=== PATIENT | female | born 1965 | race Caucasian/White ===

== ENCOUNTER 2019-01-19 04:31 | Inpatient (IN) ==
[2019-01-19] MEDS ORDERED: ASPIRIN PR ONE (04:42)
[2019-01-19] MEDS ORDERED: ASPIRIN PO ONE (04:42)
--- NOTE | 2019-01-19 05:06 | PROVIDER DOCUMENTATION ---
HPI-Chest Pain - General Chief Complaint: Chest Pain Stated Complaint: CP Time Seen by Provider: 01/19/19 05:05 Allergies/Adverse Reactions: Patient Allergies Allergy/AdvReac Type Severity Reaction Status Date / Time latex Allergy RASH Verified 01/19/19 04:58 Penicillins Allergy RASH Verified 01/19/19 04:58 Home Medications: Home Medication List Medication Instructions Recorded Confirmed Last Taken Type Omeprazole 40 mg PO DAILY 12/26/13 01/19/19 09/20/17 09:00 History Oxcarbazepine 150 mg PO BID 12/26/13 01/19/19 09/21/17 09:00 History Oxcarbazepine 300 mg PO BID 12/26/13 01/19/19 09/21/17 09:00 History ATORVAstatin [Lipitor] 10 mg PO QPM 09/19/17 01/19/19 09/20/17 09:00 History Ergocalciferol (Vitamin D2) 50,000 unit PO DIRECTED 09/19/17 01/19/19 09/20/17 09:00 History [Vitamin D2] Furosemide 20 mg PO DAILY PRN 09/19/17 01/19/19 09/20/17 09:00 History Metformin HCl 1,000 mg PO BID 09/19/17 01/19/19 09/20/17 21:00 History Metoprolol Tartrate 50 mg PO DAILY 09/19/17 01/19/19 09/21/17 11:35 History Potassium Chloride 10 meq PO DAILY PRN 09/19/17 01/19/19 09/20/17 09:00 History Albuterol Sulfate Inhaler 2 puff INH Q4-6H PRN PRN 01/19/19 01/19/19 Unknown History [Ventolin Hfa] Aspirin [Aspir-Low] 1 tab PO DAILY 01/19/19 01/19/19 Unknown History Ciclopirox [Penlac] 1 applicatn TOP DAILY 01/19/19 01/19/19 Unknown History Gabapentin 1 cap PO QHS 01/19/19 01/19/19 Unknown History Montelukast [Singulair] 1 tab PO QPM 01/19/19 01/19/19 Unknown History Sumatriptan [Imitrex] 1 spray INTRANASAL PRN PRN 01/19/19 01/19/19 Unknown History - History of Present Illness-CP Nature of Presenting Problem: Presents to the with complaints chest pain. She states that the chest pain started on and has been coming and going since. Nothing makes it better and nothing makes it worse. she describes the pain as dull starting in left breast and going into her left shoulder and then into her left abdomen. She endorses nausea with it. Denies any vomiting, diaphoresis, SOB or palpitations. She states she has a history of one stent that was placed about 1 year ago. 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 Review of Systems - Adult - REVIEW OF SYSTEMS - ADULT Constitutional: reports: no symptoms reported Eyes: reports: no symptoms reported Ears, Nose, Mouth & Throat: reports: no symptoms reported Cardiovascular: reports: chest pain. denies: palpitations Respiratory: reports: no symptoms reported. denies: cough, dyspnea on exertion, shortness of breath Gastrointestinal: reports: see HPI, abdominal pain, nausea. denies: vomiting Genitourinary: reports: no symptoms reported Musculoskeletal: reports: no symptoms reported Integumentary: reports: no symptoms reported Neurological: reports: no symptoms reported Psychiatric: reports: no symptoms reported Endocrine: reports: no symptoms reported Hematologic/Lymphatic: reports: no symptoms reported Allergic/Immunologic: reports: no symptoms reported All Other Systems: Reviewed and Negative Past History - Adult - PAST MEDICAL HISTORY-ADULT Review of Records: reports: Old Records Reviewed Major Childhood Illnesses: reports: denies history Cardiovascular: reports: HTN Respiratory: reports: denies history Gastrointestinal: reports: cholelithiasis, GERD, other (H. Pylori) Obstetrical/Gynecological: reports: denies history Genitourinary: reports: denies history Musculoskeletal: reports: denies history Neurological: reports: Seizures/Epilepsy Psychiatric: reports: denies history Endocrine/Immune: reports: Diabetes Other Conditions: reports: denies history - PRIOR SURGERIES/PROCEDURES Surgical/Procedure History: reports: other (scheduled for cholecystectomy 12/30/13 cancelled due to CP) - PRIOR HOSPITALIZATIONS Prior Hospitalizations: reports: none - IMMUNIZATION STATUS Childhood Immunizations: UTD Flu Vaccine: See Nurse Assessment - FAMILY HISTORY Family History: reviewed, not pertinent Physical Exam-General - PHYSICAL EXAM-ADULT Initial Vital Signs Reviewed: Yes - CONSTITUTIONAL General Appearance: appears well, alert, no apparent distress, anxious - EYES Eyes: PERRL/EOMI - HEAD, EARS, NOSE, MOUTH & THROAT HENMT: normocephalic/atraumatic, moist mucous membranes - NECK Neck: non-tender, full range of motion, supple, normal inspection - RESPIRATORY Respiratory: chest non-tender, lungs clear, normal breath sounds, no respiratory distress, no accessory muscle use - CARDIOVASCULAR Cardiovascular: normal peripheral pulses, regular rate, rhythm, no murmur - GASTROINTESTINAL (ABDOMEN) Abdominal Exam: normal bowel sounds, non tender, soft, other (obese) - MUSCULOSKELETAL Back Exam: normal inspection Extremity: normal range of motion, non-tender, normal gait, no pedal edema - SKIN Integumentary: normal color, warm/dry - NEUROLOGIC Neurologic: grossly normal - PSYCHIATRIC Psych/Mental Status: normal mood/affect, oriented x 3, anxious - HEART Score HEART Score: History: Moderately Suspicious HEART Score: ECG: Normal HEART Score: Age: 45-65 Years HEART Score: Risk Factors for Atherosclerotic Disease: > or = 3 Risk Factors or History of Atherosclerotic Disease HEART Score: Troponin: < or = Normal Limit Total HEART Score:: 4 Progress - PLAN OF CARE/RESULTS Progress/Plan/Lab Results: Vital Signs - 8 hr 01/19/19 04:36 01/19/19 07:05 Temperature 98.2 F Pulse Rate 78 71 Respiratory Rate 20 17 Blood Pressure 173/116 181/101 O2 Sat by Pulse Oximetry 96 94 L Laboratory Results - last 24 hr 01/19/19 01/19/19 01/19/19 04:43 04:43 04:43 WBC 9.32 RBC 4.26 Hgb 12.4 Hct 37.0 MCV 86.9 MCH 29.1 MCHC 33.5 RDW Std Deviation 14.1 Plt Count 290 MPV 10.7 H Immature Gran % (Auto) 0.2 Neut % (Auto) 38.8 L Lymph % (Auto) 49.6 [place] % (Auto) 6.8 Eos % (Auto) 4.1 Baso % (Auto) 0.5 Immature Gran # (Auto) 0.02 Neut # (Auto) 3.62 Lymph # (Auto) 4.62 H [place] # (Auto) 0.63 H Eos # (Auto) 0.38 Baso # (Auto) 0.05 PT INR PTT (Actin FS) Sodium 141 Potassium 4.2 Chloride 101 Carbon Dioxide 25 Anion Gap 16 BUN 9 Creatinine 0.4 L Estimated GFR/1.73 m2 > 60 BUN/Creatinine Ratio 23 Glucose 145 H Calculated Osmolality 283 Calcium 9.5 Total Bilirubin 0.20 AST 59 H ALT 45 H Alkaline Phosphatase 72 Creatine Kinase 151 Troponin T Vhs-H-[id number] Pept 41 Total Protein 7.2 Albumin 4.7 Globulin 3.0 Albumin/Globulin Ratio 2.0 01/19/19 01/19/19 04:43 04:43 WBC RBC Hgb Hct MCV MCH MCHC RDW Std Deviation Plt Count MPV Immature Gran % (Auto) Neut % (Auto) Lymph % (Auto) [place] % (Auto) Eos % (Auto) Baso % (Auto) Immature Gran # (Auto) Neut # (Auto) Lymph # (Auto) [place] # (Auto) Eos # (Auto) Baso # (Auto) PT 12.2 INR 0.86 PTT (Actin FS) 24.8 Sodium Potassium Chloride Carbon Dioxide Anion Gap BUN Creatinine Estimated GFR/1.73 m2 BUN/Creatinine Ratio Glucose Calculated Osmolality Calcium Total Bilirubin AST ALT Alkaline Phosphatase Creatine Kinase Troponin T < 0.010 [id number] Pept Total Protein Albumin Globulin Albumin/Globulin Ratio Orders Category Date Time Status Cardiac Monitoring DIRECTED Care 01/19/19 04:42 Active Oxygen Therapy- ED Nursing DIRECTED Care 01/19/19 04:42 Active Saline Loc NOW Care 01/19/19 04:42 Active CHEST-2 VIEWS [RAD] Stat Exams 01/19/19 04:42 Completed CBC WITH ELECTRONIC DIFF [HEME] Stat Lab 01/19/19 04:43 Completed CK PROFILE [SP CHEM] Stat Lab 01/19/19 04:43 Completed CK PROFILE [SP CHEM] Stat Lab 01/19/19 06:59 Ordered COMPREHENSIVE METABOLIC PANEL [CHEM] Stat Lab 01/19/19 04:43 Completed PRO B-NATRIURETIC PEPTIDE Stat Lab 01/19/19 04:43 Completed PROTIME WITH INR [COAG] Stat Lab 01/19/19 04:43 Completed PTT [COAG] Stat Lab 01/19/19 04:43 Completed TROPONIN T Stat Lab 01/19/19 04:43 Completed TROPONIN T Stat Lab 01/19/19 06:59 Ordered Aspirin Med 01/19/19 04:42 Discontinued 300 mg RI NOW ONE Aspirin Med 01/19/19 04:42 Discontinued 325 mg PO NOW ONE Famotidine [Pepcid] Med 01/19/19 05:30 Discontinued 40 mg PO NOW ONE Ketorolac [Toradol] Med 01/19/19 05:30 Discontinued 30 mg IV NOW ONE Nitroglycerin Med 01/19/19 06:37 Discontinued 0.5 inch TOP NOW ONE Ondansetron [Zofran] Med 01/19/19 05:30 Discontinued 4 mg IV NOW ONE CP/SOB/Palp >45 yrs of Age Stat Oth 01/19/19 04:42 Ordered EKG [EKG] Stat Ther 01/19/19 04:34 Draft EKG [EKG] Stat Ther 01/19/19 06:59 Ordered Patient with negative troponin and normal EKG. Given hx of stent and previous PA heart score is 4. Spoke to patient about staying for ACS. She agreed. Spoke to Dr Morocho who accepted patient for admission. Stable for floor with telemetry Result Diagrams: 01/19/19 04:43 01/19/19 04:43 - EKG 1 Time of EKG reading by physician:: 04:40 EKG Read and Signed by:: Abbi Cornell EKG Interpretation (*Must complete 3 of following elements*): Normal Rate: 75 Rhythm: NSR [place]: normal QRS: normal RI Interval: normal ST Wave: normal - CONSULTS/PCP/HOSPITALIST Notification #1 *Consult/PCP/Hospitalist*: Rashawn Time Discussed: 07:14 Consult Disposition: Admit Departure - Departure Date of Disposition Decision: 01/19/19 Time of Disposition Decision: 07:14 DIAGNOSIS: Chest pain Disposition: ADMITTED INPATIENT 09 Certified Medical Emergency: Emergent Condition: Stable Referrals and Follow-Ups: None,PCP [Primary Care Provider] - - Critical Care Note This patient required my direct & personal management of CC.: No Attestation - Physician/ STACEY Attestation Patient care was provided by Advanced Practice Provider:: No The physician spent face to face time with patient:: Yes Advanced Practice Provider documentation review:: Supervising physician onsite and consulted in the evaluation and care of this patient. The physician did have a face to face encounter with the patient.
--- NOTE | 2019-01-19 05:11 | EKG Report ---
Test Performed on : 01/19/2019 04:38:29 AM Test Reason : chest pain Blood Pressure : / mmHG Vent. Rate : 075 BPM Atrial Rate : 075 BPM P-R Int : 130 ms QRS Dur : 076 ms QT Int : 388 ms P-R-T Axes : 049 032 041 degrees QTc Int : 433 ms Normal sinus rhythm. Normal ECG When compared with ECG of 30-DEC-2013 20:07, No significant change was found Unconfirmed Result
[2019-01-19] MEDS ORDERED: ZOFRAN IV ONE (05:30)
[2019-01-19] MEDS ORDERED: TORADOL IV ONE (05:30)
[2019-01-19] MEDS ORDERED: PEPCID PO ONE (05:30)
[2019-01-19 05:43] LABS: BASO# 0.05 X1000 (0.0-0.2); BASO% 0.5 % (0.0-0.8); EOS# 0.38 X1000 (0.0-0.7); EOS% 4.1 % (0.0-10.0); HEMOGLOBIN 12.4 g/dL (12.0-16.0); IMM GRAN# 0.02 X1000 (0.0-0.04); IMM GRAN% 0.2 % (0.0-0.5); LYMPH# 4.62 X1000 (1.2-3.4); LYMPH% 49.6 % (20.5-51.1); MCH 29.1 PG (27-31); MCHC 33.5 g/dL (33-37); MCV 86.9 FL (81-99); MONO# 0.63 X1000 (0.11-0.59); MONO% 6.8 % (1.7-9.3); MPV 10.7 FL (7.4-10.4); NEUT# 3.62 X1000 (1.4-6.5); NEUT% 38.8 % (42.2-75.2); PLT 290 X1000 (130-400); RBC 4.26 XMIL (4.2-5.4); RDW 14.1 % (11.5-14.5); WBC 9.32 X1000 (4.8-10.8)
[2019-01-19 05:46] LABS: INR 0.86; PROTIME 12.2 Seconds (11.0-16.0)
[2019-01-19 05:47] LABS: PTT 24.8 Seconds (22.3-41.8)
[2019-01-19 06:10] LABS: CHLORIDE 101 mmol/L (98-107); POTASSIUM 4.2 mmol/L (3.5-5.1); SODIUM 141 mmol/L (136-145)
[2019-01-19 06:26] LABS: AGAP 16; ALKALINE PHOSPHATASE 72 U/L (32-104); BUN 9 mg/dL (8-22); CALCIUM 9.5 mg/dL (8.8-10.2); CK PROFILE 151 U/L (24-173); COSMO 283; CREATININE 0.4 mg/dL (0.5-0.9); ESTIMATED GFR > 60; GLUCOSE 145 mg/dL (70-104); GOT 59 U/L (10-30); GPT 45 U/L (10-36); TCO2 25 mmol/L (25-35); TOTAL PROTEIN 7.2 g/dL (6.3-8.3)
[2019-01-19] MEDS ORDERED: NITROGLYCERIN TOP ONE (06:37)
[2019-01-19 06:40] LABS: ALBUMIN 4.7 g/dL (3.5-5.0)
--- NOTE | 2019-01-19 07:12 | Diag Imaging Result Doc PS360 ---
EXAM: CHEST-2 VIEWS 01/19/2019 HISTORY: chest pain TECHNIQUE: PA and lateral chest COMMENT: The left hemidiaphragm is slightly elevated. There is ill-defined opacity over the left base which was not the case on 12/30/2013. There is some obscuration of the left hemidiaphragm on the lateral view. IMPRESSION: Minimal left lower lobe pneumonia. Electronically signed by Charles Mcgarry 01/19/2019 7:10 AM
[2019-01-19] MEDS ORDERED: TYLENOL PO PRN (08:11)
[2019-01-19] MEDS ORDERED: ZOFRAN IV PRN (08:11)
[2019-01-19] MEDS ORDERED: SALINE LOCK IV FLUID XX ONE (08:11)
[2019-01-19] MEDS ORDERED: VENTOLIN HFA INH PRN (08:16)
[2019-01-19] MEDS ORDERED: KLOR-CON PO PRN (08:16)
[2019-01-19] MEDS ORDERED: LASIX PO PRN (08:16)
--- NOTE | 2019-01-19 08:37 | EKG Report ---
Test Performed on : 01/19/2019 07:11:30 AM Test Reason : CP Blood Pressure : / mmHG Vent. Rate : 074 BPM Atrial Rate : 074 BPM P-R Int : 138 ms QRS Dur : 074 ms QT Int : 418 ms P-R-T Axes : 048 040 042 degrees QTc Int : 463 ms Normal sinus rhythm. Normal ECG When compared with ECG of 19-JAN-2019 04:38, (Unconfirmed) No significant change was found Unconfirmed Result
[2019-01-19] MEDS ORDERED: CICLOPIROX TOP SCH (09:00)
[2019-01-19] MEDS: MORPHINE IV PRN ×2 (09:06→13:59)
[2019-01-19] MEDS: ASPIRIN PO SCH (09:06)
[2019-01-19] MEDS: GLUCOPHAGE PO SCH ×2 (09:06→16:44)
[2019-01-19] MEDS: LOPRESSOR PO SCH (09:07)
[2019-01-19] MEDS: TRILEPTAL PO SCH ×4 (09:35→21:18)
[2019-01-19] MEDS ORDERED: PNEUMOVAX 23 IM ONE (09:45)
--- NOTE | 2019-01-19 12:10 | EKG Report ---
Test Performed on : 01/19/2019 11:40:26 AM Test Reason : CP Blood Pressure : / mmHG Vent. Rate : 070 BPM Atrial Rate : 070 BPM P-R Int : 136 ms QRS Dur : 082 ms QT Int : 424 ms P-R-T Axes : 067 063 066 degrees QTc Int : 457 ms Normal sinus rhythm. Normal ECG When compared with ECG of 19-JAN-2019 07:11, (Unconfirmed) No significant change was found Confirmed by Jorge A Llanes MD ([id number]) on 01/20/2019 11:26:17 AM
[2019-01-19] MEDS: ROCEPHIN 1 GM in NS 50 ML IV SCH (13:06)
[2019-01-19] MEDS: HUMULIN R (PARKWAY) SUBQ SCH ×3 (13:26→22:18)
--- NOTE | 2019-01-19 13:52 | HISTORY AND PHYSICAL ---
ADDENDUM: Patient seen and examined by myself. Full note dictated and discussed with nurse practitioner. Patient notes that she had a heart catheterization January 26, 2017, and had stents. Does not have any workup since then. Presented with left shoulder, left chest wall pain. We will admit her to the hospital, rule out TX. We will consult Cardiology and we will follow. cc: Romero Morocho MD
--- NOTE | 2019-01-19 15:24 | HISTORY AND PHYSICAL ---
PRIMARY CARE PHYSICIAN: Dr. Brown. CHIEF COMPLAINT: Chest pain. HISTORY OF PRESENT ILLNESS: Mr. Colón is a 53-year-old female who presented to the ER today with a past medical history of known coronary artery disease with a stent placement in 2018, diabetes, hyperlipidemia, hypertension. The patient states that she started having chest pain on . The pain is sharp. It radiates down her left arm into the shoulder area. The patient states she was also having some stomach pain at the time. The patient states the pain comes and goes, but nothing ever makes it any better. The patient states she has had some nausea with this pain. She has not had any vomiting. She denies any headache, fever, palpitations, dizziness, shortness of breath, syncope, or any blurred vision. Patient states that this pain has continually persisted on and off since , so she decided to come to the ER at this time. The patient denies any problem with her bowels or bladder. States she does not have any hematuria, melena, urgency, or frequency or any constipation. LABORATORY FINDINGS: In the ER show a creatine kinase of 133, a troponin of less than 0.01. AST and ALT elevation, AST is 59, ALT is 45. Glucose is elevated at 145. Creatinine is 0.4. DIAGNOSTIC DATA: Shows some minimal left lower lobe pneumonia. EKG shows normal sinus rhythm with a rate of 74. PAST MEDICAL HISTORY: Coronary artery disease, diabetes, hyperlipidemia, hypertension. PAST SURGICAL HISTORY: A stent placement to her heart in 01/26/2018 in [place]. Left ankle surgery, tonsillectomy, partial hysterectomy and tubal ligation, bladder tack. FAMILY HISTORY: Mother and father both are significant for heart problems. SOCIAL HISTORY: The patient states she lives in [place]. She denies any smoking, alcohol or any drug abuse. ALLERGIES: Penicillin and latex. MEDICATIONS: 1. Aspirin 81 mg daily. 2. Omeprazole 40 mg daily. 3. Imitrex 5 mg nasal spray p.r.n. 4. Albuterol sulfate inhaler 2 puffs every 4 to 6 hours p.r.n. 5. Lipitor 10 mg p.o. q.p.m. 6. Vitamin D2, 41466 units p.o. weekly. 7. Furosemide 20 mg p.o. daily. 8. Gabapentin 300 mg p.o. at bedtime. 9. Metformin 1000 mg p.o. b.i.d. 10. Metoprolol 50 mg p.o. daily. 11. Singulair 10 mg p.o. q.p.m. 12. Oxcarbazepine 450 mg p.o. b.i.d. 13. Potassium chloride 10 mEq p.o. daily. LABORATORY DATA AND DIAGNOSTICS: White blood cell count 9.32, hemoglobin 12.4, hematocrit 37, platelet count 290,000. PT is 12.2, INR is 0.86, PTT is 24.8, sodium is 141, potassium is 4.2, carbon dioxide 25, anion gap is 16, BUN is 9, creatinine is 0.4, estimated GFR greater than 60, glucose is 145, calcium is 9.5. Total bilirubin is 0.20, AST is 59, ALT is 45, alkaline phosphatase 72, creatine kinase is 133, troponin is less than 0.01. ProBNP is 41. Chest x-ray shows minimal left lower lobe. The EKG shows normal sinus rhythm, rate of 74. REVIEW OF SYSTEMS: A 10 point review of systems has been obtained and all negative except what is stated above in the HPI. PHYSICAL EXAMINATION: VITAL SIGNS: Temperature 97.7 degrees, pulse rate 66, respiratory rate 20, blood pressure 153/78, O2 saturation 100% on 2 L nasal cannula. Weight 191 pounds and 4 ounces. Height 5 feet 3 inches. GENERAL: This is a 53-year-old female. She is lying on the ER stretcher. She is in no acute distress at present time. She is well nourished and well developed. HEENT: Atraumatic, normocephalic. Pupils equal, round, react to light. Extraocular movements intact. Sclerae is anicteric. Mucous membranes are moist. NECK: Supple. No lymphadenopathy. Trachea is midline. No JVD. No thyromegaly. No bruits. CARDIOVASCULAR: Regular rate and rhythm. No murmurs, gallops, or rubs appreciated. RESPIRATORY: Lung sounds are clear with equal chest excursion. Respirations are nonlabored with no accessory muscle usage. ABDOMEN: Soft, nontender, nondistended. Bowel sounds present x4. NEUROLOGIC: Cranial nerves 2-12 are intact. Patient is awake, alert, oriented, able to follow all commands appropriately. MUSCULOSKELETAL: Full distal strength noted. No abnormalities, no deformities. EXTREMITIES: No clubbing, no cyanosis, no edema. DP and PT pulses are present and palpable. SKIN: Warm, dry, and intact. No rashes. No bruises. No diaphoresis noted. ASSESSMENT AND PLAN: 1. Chest pain, rule out acute coronary syndrome . We will admit this patient to the medical floor. We are going to trend her serial CK, troponins and EKGs. We will order an echocardiogram for the patient. I have started her on aspirin 325 p.o. daily and continued all her home medications. 2. Pneumonia. I have started this patient on IV antibiotics for her pneumonia. I have also reordered her home medication and her inhaler. 3. Hypertension. I have reordered her home blood pressure medications. 4. Diabetes mellitus. I have reordered her home blood sugar medications. We are also going to check her fingersticks before meals and at bedtime and will provide her with sliding scale insulin as needed. 5. Known coronary artery disease. The patient states that she had a stent placed in January 2018 at [facility]. Patient has since seen Dr. Cerna. She is on home aspirin, but Dr. Cerna took her off her Plavix. We will start her on aspirin 325 mg p.o. daily. We will rule her out for acute coronary syndrome from her chest pain, we are going to do echo echocardiogram. 6. Hyperlipidemia. I have restarted her home lipid medication. 7. Gastrointestinal prophylaxis. I have placed her on omeprazole 20 mg p.o. daily. 8. Deep venous thrombosis prophylaxis. I placed her in SCDs. We have admitted this patient to the medical floor. We will place her on groundwater monitoring technician. We are going to trend her CK and troponins and her EKGs. She does show to have a pneumonia. We have started her on IV antibiotics. We reordered all her home medications. We started her on a healthy heart diet. We are also going to be checking her blood sugars before meals and at bedtime. I have reordered labs for in the morning and chest x-ray. All other further recommendations and treatment pending hospital course and lab data. Dictated by GIOVANNA Monet for Romero Morocho MD cc: MD Salome Philip Read [facility]
--- NOTE | 2019-01-19 15:50 | ECHO REPORT ---
ORDER DATE: 01/19/2019 INTERPRETING PHYSICIAN: Dr. Cabrera REQUESTING PHYSICIAN: CLINICAL INDICATIONS: This is a 53-year-old female with coronary heart disease, chest pain, nausea. M-MODE MEASUREMENTS: Right ventricle: cm. Left ventricle end diastole: 4.8 cm. Left ventricle end systole: 3.2 cm. Posterior wall: 1.9 cm. Interventricular septum: 0.9 cm. Left atrium: 3.8 cm. Aortic root: 3.3 cm. SUMMARY OF 2-DIMENSIONAL IMAGIN. The left ventricular function is excellent. Ejection fraction is 75%. There is no wall motion abnormality. The chamber is not dilated. There is no LVH. 2. The aortic valve looks normal. Color flow mapping is unremarkable. 3. The mitral valve looks normal. Color flow mapping is unremarkable. 4. The pulse wave Doppler of mitral inflow is normal. 5. The tissue Doppler of septal and lateral mitral annulus averages 7 cm. 6. Pulmonary venous flow is normal. 7. There is no diastolic dysfunction. 8. The pulmonic valve looks normal. Color flow mapping is unremarkable. 9. Tricuspid valve shows minimal regurgitation. 10.Pulmonary pressure estimated at 28 mmHg. 11.The atria appear to be normal. 12.The right ventricle appears to be normal. CONCLUSIONS: In summary, this echocardiographic study appears to be well within normal limits. cc: Nate Cabrera MD
[2019-01-19] MEDS ORDERED: MORPHINE IV PRN (16:36)
--- NOTE | 2019-01-19 17:30 | EKG Report ---
Test Performed on : 01/19/2019 5:27:11 PM Test Reason : CP Blood Pressure : / mmHG Vent. Rate : 072 BPM Atrial Rate : 072 BPM P-R Int : 142 ms QRS Dur : 084 ms QT Int : 410 ms P-R-T Axes : 052 049 052 degrees QTc Int : 448 ms Normal sinus rhythm. Normal ECG When compared with ECG of 19-JAN-2019 11:40, (Unconfirmed) No significant change was found Confirmed by Jorge A Llanes MD ([id number]) on 01/20/2019 11:26:04 AM
[2019-01-19] MEDS: NORCO-7.5 PO PRN ×2 (17:47→23:39)
[2019-01-19] MEDS: DUONEB (A & A) INH SCH (20:21)
[2019-01-19] MEDS: SINGULAIR PO SCH (21:18)
[2019-01-19] MEDS: NEURONTIN PO SCH (21:18)
[2019-01-19] MEDS: LIPITOR PO SCH (21:18)
[2019-01-20] MEDS: DUONEB (A & A) INH SCH ×4 (03:22→20:24)
--- NOTE | 2019-01-20 04:32 | EKG Report ---
Test Performed on : 01/19/2019 9:48:24 PM Test Reason : chest pain Blood Pressure : / mmHG Vent. Rate : 076 BPM Atrial Rate : 076 BPM P-R Int : 130 ms QRS Dur : 080 ms QT Int : 412 ms P-R-T Axes : 049 040 046 degrees QTc Int : 463 ms Normal sinus rhythm. Normal ECG When compared with ECG of 19-JAN-2019 17:27, (Unconfirmed) No significant change was found Confirmed by Jorge A Llanes MD ([id number]) on 01/20/2019 11:25:56 AM
--- NOTE | 2019-01-20 06:05 | EKG Report ---
Test Performed on : 01/20/2019 05:47:59 AM Test Reason : chest pain Blood Pressure : / mmHG Vent. Rate : 077 BPM Atrial Rate : 077 BPM P-R Int : 132 ms QRS Dur : 082 ms QT Int : 404 ms P-R-T Axes : 051 019 041 degrees QTc Int : 457 ms Normal sinus rhythm. Normal ECG When compared with ECG of 19-JAN-2019 21:48, (Unconfirmed) No significant change was found Confirmed by Jorge A Llanes MD ([id number]) on 01/20/2019 11:25:48 AM
[2019-01-20] MEDS: HUMULIN R (PARKWAY) SUBQ SCH ×3 (06:27→17:02)
[2019-01-20] MEDS: NORCO-7.5 PO PRN ×3 (06:33→20:42)
[2019-01-20] MEDS: PRILOSEC PO SCH (06:34)
[2019-01-20 07:04] LABS: BASO# 0.04 X1000 (0.0-0.2); BASO% 0.6 % (0.0-0.8); EOS# 0.37 X1000 (0.0-0.7); EOS% 5.4 % (0.0-10.0); HEMATOCRIT 34.4 % (37.0-47.0); IMM GRAN# 0.01 X1000 (0.0-0.04); IMM GRAN% 0.1 % (0.0-0.5); LYMPH# 3.48 X1000 (1.2-3.4); LYMPH% 51.3 % (20.5-51.1); MCV 87.5 FL (81-99); MONO# 0.42 X1000 (0.11-0.59); MONO% 6.2 % (1.7-9.3); MPV 10.9 FL (7.4-10.4); NEUT# 2.47 X1000 (1.4-6.5); NEUT% 36.4 % (42.2-75.2); PLT 239 X1000 (130-400); RBC 3.93 XMIL (4.2-5.4); WBC 6.79 X1000 (4.8-10.8)
--- NOTE | 2019-01-20 07:11 | Diag Imaging Result Doc PS360 ---
EXAM: CHEST-PORTABLE 01/20/2019 HISTORY: dyspnea TECHNIQUE: AP portable at 0631 COMMENT: There is increased opacity in the left costophrenic angle region compared to 01/19/2019. Otherwise are has been no significant change. IMPRESSION: Atelectasis versus pneumonia left lower lobe. Electronically signed by Charles Mcgarry 01/20/2019 7:09 AM
[2019-01-20 07:29] LABS: AGAP 14; BUN 8 mg/dL (8-22); CALCIUM 8.7 mg/dL (8.8-10.2); CHLORIDE 98 mmol/L (98-107); COSMO 277; CREATININE 0.4 mg/dL (0.5-0.9); ESTIMATED GFR > 60; GLUCOSE 124 mg/dL (70-104); MAGNESIUM 1.4 mg/dL (1.5-2.7); POTASSIUM 4.1 mmol/L (3.5-5.1); SODIUM 139 mmol/L (136-145); TCO2 27 mmol/L (25-35)
[2019-01-20] MEDS ORDERED: MAGNESIUM SULFATE 2 GM/S.W.I. 2 GM/50 ML IVPB IV ONE ×2 (07:31→14:00)
[2019-01-20 07:51] LABS: TSH 2.75 uIUmL (0.27-4.20)
[2019-01-20] MEDS: ASPIRIN PO SCH (08:00)
[2019-01-20] MEDS: LOPRESSOR PO SCH (08:00)
[2019-01-20] MEDS: TRILEPTAL PO SCH ×4 (08:01→20:38)
[2019-01-20] MEDS: GLUCOPHAGE PO SCH ×2 (08:01→16:55)
[2019-01-20] MEDS ORDERED: VITAMIN D PO SCH (09:00)
[2019-01-20] MEDS: ZITHROMAX PO SCH (12:30)
[2019-01-20] MEDS: ROCEPHIN 1 GM in NS 50 ML IV SCH (12:32)
--- NOTE | 2019-01-20 13:40 | PROGRESS NOTE ---
DATE: 01/20/2019 SUBJECTIVE: The patient notes she still does not feel back to normal, still having some chest pain. Denies any radiation of pain. It does get worse when she breathes or when she attempts to move. Denies any fevers, chills, cough or congestion. OBJECTIVE: Vital signs: Temperature is 97.6, pulse 78, respiratory 18, blood pressure 152/76. General: Patient is awake, alert, currently in no distress. HEENT: Normocephalic. Neck: Supple. Cardiovascular: Regular rate. Chest: Clear. Abdomen: Soft, obese, nondistended. Extremities: Moves all extremities. Neurologic: No changes. ASSESSMENT: 1. Chest pain in a patient with a known history of coronary disease. She had a stent, she believes, in 2017. She has had no workup since then. 2. Pneumonia. 3. Hypertension. 4. Diabetes. 5. Hyperlipidemia. PLAN: We will continue the patient in the hospital. Continue treatment for pneumonia. Echo was thankfully normal. If her symptoms continue, we will need to perform an inpatient stress test. Further orders as needed. cc: Romero Morocho MD
[2019-01-20] MEDS: NITROGLYCERIN SL PRN (14:47)
--- NOTE | 2019-01-20 16:06 | EKG Report ---
Test Performed on : 01/20/2019 3:39:22 PM Test Reason : CP Blood Pressure : / mmHG Vent. Rate : 080 BPM Atrial Rate : 080 BPM P-R Int : 130 ms QRS Dur : 084 ms QT Int : 400 ms P-R-T Axes : 037 015 034 degrees QTc Int : 461 ms Normal sinus rhythm. Normal ECG When compared with ECG of 20-JAN-2019 05:47, No significant change was found Confirmed by Jorge A Llanes MD ([id number]) on 02/14/2019 3:34:24 PM
[2019-01-20] MEDS: AMBIEN PO SCH (20:37)
[2019-01-20] MEDS: NEURONTIN PO SCH (20:37)
[2019-01-20] MEDS: LIPITOR PO SCH (20:37)
[2019-01-20] MEDS: SINGULAIR PO SCH (20:37)
[2019-01-21] MEDS: DUONEB (A & A) INH SCH ×4 (04:01→20:44)
[2019-01-21 05:51] LABS: HEMATOCRIT 35.2 % (37.0-47.0); HEMOGLOBIN 11.1 g/dL (12.0-16.0); MCH 27.7 PG (27-31); MCHC 31.5 g/dL (33-37); MCV 87.8 FL (81-99); MPV 10.3 FL (7.4-10.4); RBC 4.01 XMIL (4.2-5.4); RDW 14.1 % (11.5-14.5); WBC 8.06 X1000 (4.8-10.8)
[2019-01-21 06:14] LABS: AGAP 14; ALBUMIN 4.1 g/dL (3.5-5.0); ALKALINE PHOSPHATASE 63 U/L (32-104); BUN 9 mg/dL (8-22); CHLORIDE 99 mmol/L (98-107); COSMO 280; CREATININE 0.4 mg/dL (0.5-0.9); ESTIMATED GFR > 60; GLUCOSE 127 mg/dL (70-104); GOT 55 U/L (10-30); GPT 42 U/L (10-36); MAGNESIUM 1.7 mg/dL (1.5-2.7); POTASSIUM 4.3 mmol/L (3.5-5.1); SODIUM 140 mmol/L (136-145); TCO2 27 mmol/L (25-35); TOTAL PROTEIN 6.7 g/dL (6.3-8.3)
[2019-01-21] MEDS: PRILOSEC PO SCH (06:18)
[2019-01-21] MEDS: HUMULIN R (PARKWAY) SUBQ SCH ×4 (07:37→20:31)
[2019-01-21] MEDS: ZITHROMAX PO SCH (08:01)
[2019-01-21] MEDS: TRILEPTAL PO SCH ×4 (08:01→21:04)
[2019-01-21] MEDS: ASPIRIN PO SCH (08:02)
[2019-01-21] MEDS ORDERED: LEXISCAN ONE (11:00)
[2019-01-21] MEDS: NITROGLYCERIN SL PRN ×2 (11:24→11:58)
[2019-01-21] MEDS: ROCEPHIN 1 GM in NS 50 ML IV SCH (11:34)
[2019-01-21] MEDS: GLUCOPHAGE PO SCH ×2 (13:59→17:06)
[2019-01-21] MEDS: NORCO-7.5 PO PRN (15:59)
[2019-01-21] MEDS: LOPRESSOR PO SCH (17:07)
--- NOTE | 2019-01-21 18:57 | PROGRESS NOTE ---
DATE: 01/21/2019 SUBJECTIVE: Patient notes she is still having chest pain mainly on the left side. Denies any radiation. Denies any fevers or chills. OBJECTIVE: Vital signs: Temperature 97.6, pulse 78, respiratory rate 18, BP 152/76. General: Patient is an obese female who is in no current respiratory distress. She is lying flat in the bed. HEENT: Normocephalic. Neck: Supple. Cardiovascular: Regular rate. Chest: Clear. No crackles. No wheezing. Abdomen: Soft, obese, nondistended. Extremities: Moves all extremities. ASSESSMENT: 1. Chest pain. Her echocardiogram was normal. GXT has been ordered today and is reported as negative. 2. Pneumonia on the left, which is likely the cause of her pain to begin with. 3. Hypertension. 4. Diabetes. 5. Known coronary artery disease. PLAN: If the patient is still having pain in the a.m., we are going to check a CT and will follow. cc: Romero Morocho MD
--- NOTE | 2019-01-21 20:41 | Diag Imaging Result Document ---
PROCEDURE NAME: MYOCARDIAL PERF SCAN, STR/REST - 01/21/2019 STUDY: Rest/stress Lexiscan myocardial perfusion study. INDICATION: The patient with chest pain. DESCRIPTION: The patient came into the nuclear lab and received a rest injection of technetium 99 sestamibi at 13.9 mCi. Multiple tomographic views of the cardiac structures were obtained at rest. Subsequently the patient underwent Lexiscan infusion 0.4 mg. At peak infusion injected with technetium 99 sestamibi 41 mCi. Multiple tomographic views of the cardiac structures were obtained following the completion of the exercise protocol. SUMMARY OF THE ELECTROCARDIOGRAPHIC PORTION OF THE STUDY: Resting ECG shows sinus rhythm with a rate of 94 beats per minute. Resting blood pressure 130/74. Resting ECG looks fairly normal. During the protocol, the heart rate increased to 121 beats per minute. The blood pressure went up to 152/82. The patient reported no chest pain, shortness of breath, or palpitations. The ECG showed no ischemic changes. Following completion of the test, heart rate and blood pressure returned back to their baseline. In summary, the electrocardiographic response to an infusion of Lexiscan is normal. SUMMARY OF THE MYOCARDIAL PERFUSION PORTION OF THE STUDY: Poststress tomographic views of the left ventricle showed normal homogeneous distribution of radiotracer throughout the entire left ventricular myocardium. There is no evidence of any postexercise defect. The rest images show normal perfusion. Polar plots revealed the same. No evidence of any inducible ischemia nor myocardial scar. Gated SPECT shows normal left ventricular systolic function with ejection fraction of 84% with normal ventricular volumes. No wall motion abnormality. The lung/heart ratio is normal. TID is normal. SUMMARY: This study shows 1. Normal electrocardiographic response to infusion of Lexiscan. 2. Normal poststress myocardial perfusion scan. 3. There is no scintigraphic evidence of pharmacologically induced myocardial ischemia utilizing the Lexiscan protocol. 4. Normal left ventricular systolic function. Ejection fraction is estimated at 84% with normal ventricular volumes and no wall motion abnormality. This study represents a low risk for ischemic events. cc: MD Romero Denise MD
[2019-01-21] MEDS: SINGULAIR PO SCH (21:03)
[2019-01-21] MEDS: LIPITOR PO SCH (21:03)
[2019-01-21] MEDS: AMBIEN PO SCH (21:03)
[2019-01-21] MEDS: NEURONTIN PO SCH (21:03)
[2019-01-22] MEDS: NORCO-7.5 PO PRN ×4 (00:03→21:35)
[2019-01-22] MEDS: DUONEB (A & A) INH SCH ×4 (03:34→20:48)
[2019-01-22] MEDS: HUMULIN R (PARKWAY) SUBQ SCH ×4 (06:31→21:37)
[2019-01-22] MEDS: PRILOSEC PO SCH (06:45)
[2019-01-22] MEDS: ZITHROMAX PO SCH (08:41)
[2019-01-22] MEDS: GLUCOPHAGE PO SCH ×2 (08:42→16:11)
[2019-01-22] MEDS: ASPIRIN PO SCH (08:42)
[2019-01-22] MEDS: TRILEPTAL PO SCH ×4 (08:42→21:35)
[2019-01-22] MEDS: LOPRESSOR PO SCH (08:43)
[2019-01-22] MEDS: ROCEPHIN 1 GM in NS 50 ML IV SCH (11:44)
--- NOTE | 2019-01-22 18:47 | PROGRESS NOTE ---
DATE: 01/21/2019 SUBJECTIVE: The patient notes that she still feels lousy, but states that is a little bit better than what she was feeling. Denies any fevers or chills. Denies any chest pain other than what she has been having since admission. Notes the chest pain has been fairly consistent. PHYSICAL EXAMINATION: Vital Signs: Temperature 97.7 degrees, pulse 77, respiratory rate 18, BP 124/60. General: Patient is awake, alert. She is in no respiratory distress. HEENT: Normocephalic. Neck: Supple. Cardiovascular: Regular rate. Chest: Clear. Abdomen: Soft. Extremities: Moves all extremities. ASSESSMENT: Left lower lobe pneumonia. I expect this is the cause of her chest pain. She has had a negative stress test, echocardiogram, and all of her enzymes have been negative. We will continue to follow. Further orders as needed. We are going to check a CT and hopefully she can improve enough to be discharged home. cc: Romero Morocho MD
[2019-01-22] MEDS: SINGULAIR PO SCH (21:34)
[2019-01-22] MEDS: NEURONTIN PO SCH (21:34)
[2019-01-22] MEDS: AMBIEN PO SCH (21:35)
[2019-01-22] MEDS: LIPITOR PO SCH (21:35)
[2019-01-23] MEDS: DUONEB (A & A) INH SCH ×2 (03:02→08:00)
[2019-01-23] MEDS: HUMULIN R (PARKWAY) SUBQ SCH ×2 (06:07→11:52)
[2019-01-23] MEDS: PRILOSEC PO SCH ×2 (06:07→06:19)
[2019-01-23] MEDS: TRILEPTAL PO SCH ×2 (08:04→08:06)
[2019-01-23] MEDS: NORCO-7.5 PO PRN (08:05)
[2019-01-23] MEDS: ZITHROMAX PO SCH (08:05)
[2019-01-23] MEDS: ASPIRIN PO SCH (08:05)
[2019-01-23] MEDS: LOPRESSOR PO SCH (08:06)
[2019-01-23] MEDS: GLUCOPHAGE PO SCH (08:08)
--- NOTE | 2019-01-23 08:50 | Diag Imaging Result Doc PS360 ---
EXAM: CT THORAX W/CONTRAST HISTORY: pneumonia TECHNIQUE: Images were obtained from the lung apices through bases following IV contrast as per standard protocol. COMPARISON: Chest radiograph 01/20/2019 FINDINGS: There is a 12 mm right thyroid nodule. Thyroid ultrasound the considered. No mediastinal, hilar, or axillary lymphadenopathy is identified. There is no aortic aneurysm or dissection. There is coronary artery calcification. No pericardial effusion. Large airways are grossly patent. The pulmonary parenchyma. There are mild bilateral groundglass infiltrates posteriorly. No pleural effusion is appreciated. There are no parenchymal nodules or masses. No focal consolidation. There is elevation left hemidiaphragm. IMPRESSION: 1.Bilateral symmetrical posterior groundglass infiltrates likely dependent atelectasis versus mild fibrosis. 2.Elevated left hemidiaphragm. This exam was performed using automated exposure control, adjustment of mA or kV according to patient size, and/or use of iterative reconstruction technique. Electronically signed by Jeanne Rowe 01/23/2019 8:47 AM
[2019-01-23 11:34] VITALS: BP 97/58
[2019-01-23] MEDS: ROCEPHIN 1 GM in NS 50 ML IV SCH (11:52)
--- NOTE | 2019-01-23 14:32 | DISCHARGE SUMMARY ---
ADMISSION DATE: 01/19/2019 DISCHARGE DATE: 01/23/2019 PRIMARY CARE PHYSICIAN: Dr. Salome Brown ADMISSION DIAGNOSES: 1. Chest pain, rule out acute coronary syndrome. 2. Pneumonia. 3. Hypertension. 4. Diabetes. 5. Known coronary artery disease. 6. Hyperlipidemia. DISCHARGE DIAGNOSES: 1. Left lower lobe pneumonia. 2. Chest pain ruled out, resolved. 3. Hypertension. 4. Diabetes. 5. Known coronary artery disease. 6. Hyperlipidemia. SUMMARY OF FINDINGS: This is a 53-year-old female who presented to the emergency room stating that she was having chest pain that began , that was sharp, radiating down her left arm into the shoulder area. She had some stomach pain at the same time and the pain comes and goes and nothing made it better. She states she also had some nausea with the pain, but no vomiting. Denied any headaches, fever, palpitation, dizziness, shortness of breath, or blurred vision. Her workup showed a chest x-ray with a minimal left lower lobe pneumonia. White count was normal at 9.32. We trended her cardiac enzymes x4 sets that were negative. She was placed on IV antibiotics. We did an echocardiogram on 01/19/2019 that showed an ejection fraction of 75%. We did a myocardial perfusion scan on 01/21/2019 that was read per Cardiology as normal. She continued to not feel well and it was felt that this was most likely secondary to her pneumonia, but we did do a chest CT today that showed bilateral symmetrical posterior ground-glass infiltrates, likely dependent atelectasis versus mild fibrosis and an elevated left hemidiaphragm, so it is now felt that she can safely be discharged home. The patient has been instructed to hold her metformin for the next 48 hours and then restart as prescribed due to receiving contrast for her CT of the chest. The patient verbalizes understanding. HOME MEDICATIONS: We will continue her home medications as follows: Lipitor 10 mg p.o. q.a.m., vitamin D2 44162 units as directed, Lasix 20 mg p.o. daily p.r.n. gabapentin 300 mg p.o. at bedtime, metoprolol 50 mg p.o. daily, Singulair 10 mg p.o. q.p.m., oxcarbazepine 300 mg p.o. b.i.d. and 150 mg p.o. b.i.d., potassium 10 mEq p.o. daily p.r.n., Ventolin inhaler 2 puffs q.4-6 hours p.r.n., aspirin 81 mg p.o. daily, metformin 1000 mg p.o. b.i.d. to be restarted in 48 hours, omeprazole 40 mg p.o. daily, and Imitrex 1 spray nasally p.r.n. Prescriptions have been given for azithromycin 250 mg p.o. daily #4 with no refills and cefdinir 300 mg p.o. b.i.d. #14 with no refills. FOLLOW-UP INSTRUCTIONS: She will need to follow up with Dr. Salome Brown in the next 1 to 2 weeks. The patient verbalized understanding. TIME SPENT AT DISCHARGE: This is a 35 minute discharge. Dictated by GIOVANNA Hutson for Romero Morocho MD cc: GIOVANNA Hutson MD [facility]
--- NOTE | 2019-01-23 20:57 | DISCHARGE SUMMARY ---
ADMISSION DATE: 01/19/2019 DISCHARGE DATE: 01/23/2019 ADDENDUM: Patient seen and examined by myself. Full note dictated and discussed with nurse practitioner. On discharge, patient is awake, alert, currently in no distress. She is still having some chest wall pain, more so when she takes a deep breath. Echocardiogram and stress test have been negative. She does have a left-sided pneumonia, which I expect is the cause of her chest pain. She is not requiring oxygen. Will go ahead and discharge her home on antibiotics. cc: Romero Morocho MD
== END 2019-01-23 15:07 | disposition home or self-care (01) | DRG 195 ==
LOC: P.ED 04:31 → P.MEDSURG 07:51
PROVIDERS: ATTEND Family Medicine